=== PATIENT | male | born 2000 | race Caucasian/White ===

== ENCOUNTER 2020-03-10 15:37 | Emergency (ER) | payer BC ==
[~2020-03-10 15:37] MED LIST: Iopamidol-370 76% 500 ML 1 ML ONE
[2020-03-10] MEDS ORDERED: Ondansetron ODT 4 MG TAB ONE (16:23)
[2020-03-10 16:39] LABS: #Basophils 0.1 thou/uL (0.0-0.2); #Eosinphils 0.2 thou/uL (0.0-0.7); #Lymphocytes 3.2 thou/uL (1.20-3.40); #Monocytes 0.9 thou/uL (0.11-0.59); #Neutrophils 7.7 thou/uL (1.40-6.50); %Basophils 0.9 % (0.0-1.0); %Eosinophils 1.6 % (0.0-10.0); %Lymphocytes 26.6 % (21.0-51.0); %Monocytes 7.2 % (0.0-10.0); %Neutrophils 63.8 % (42.0-75.0); Hemoglobin 15.1 g/dL (14.0-18.0); Mean Corpuscular HGB CONC 34.5 g/dL (32.0-36.0); Mean Corpuscular Hemoglobin 30.1 pg (27.0-31.0); Mean Corpuscular Volume 87.2 fL (78.0-98.0); Mean Platelet Volume 7.5 fL (7.4-10.4); Platelet Count 382 thou/uL (130-400); RBC Distribution Width 11.6 % (11.5-14.5); Red Blood Cell (RBC) Count 5.02 mill/uL (4.70-6.10)
[2020-03-10 16:45] LABS: Bilirubin Negative (Negative); Blood, Urine Negative (Negative); Clarity Clear (Clear); Glucose, Urine (Dipstick) Normal (Negative); Ketone, Urine Negative (Negative); Leukocyte Negative Leu/uL (Negative); Nitrite Negative (Negative); Protein, Urine (Dipstick) 10 mg/dL (Neg-Trace); Urobilinogen Normal mg/dL (Less than 2); pH, Urine 6.5 (5.0-9.0)
[2020-03-10 16:59] LABS: ALT (SGPT) 36 U/L (8-55); AST (SGOT) 31 U/L (5-34); Albumin 4.6 g/dL (3.5-5.0); Alkaline Phosphatase 68 U/L (40-110); Anion Gap 13 mmol/L (10-20); BUN (Urea Nitrogen) 8 mg/dL (8.9-20.6); Bilirubin, Total 0.6 mg/dL (0.2-1.2); Calc. Creatinine Clearance 0 mL/min (70-130); Calcium 9.6 mg/dL (7.8-10.44); Carbon Dioxide 23 mmol/L (22-29); Chloride 108 mmol/L (98-107); Estimated GFR-MDRD 84; Glucose 96 mg/dL (70-105); Lipase 12 U/L (8-78); Potassium 4.2 mmol/L (3.5-5.1); Protein, Total 7.6 g/dL (6.0-8.3); Sodium 140 mmol/L (136-145)
[2020-03-10] MEDS ORDERED: Ondansetron PF 4 MG/2 ML Vial ONE (17:42)
--- NOTE | 2020-03-10 18:53 | CT ---
EXAM: ABDOMEN AND PELVIC CT SCAN WITH IV CONTRAST: 03/10/20 HISTORY: Right lower quadrant pain, abdominal pain, nausea and vomiting, epigastric pain, burning. FINDINGS: Lung bases appear clear. Probable mild fatty changes of the liver with borderline hepatomegaly. Somew hat small contracted gallbladder but no evidence for acute cholecystitis. Pancreas, spleen and adrena l glands are unremarkable. 2.4 cm hypodense cyst in the right kidney. No renal calculus or acute o bstruction. No CT evidence for acute appendicitis. No abscess, adenopathy, or abnormal fluid collecti on. No large or small bowel obstruction. Probable very small hiatal hernia. IMPRESSION: 1. Borderline liver size with some fatty change. 2. Possible very small hiatal hernia. 3. Evidence for a right renal cyst. 4. No evidence for other significant acute process. POS: RRE
== END 2020-03-10 19:08 | disposition home or self-care (01) ==
LOC: ERS 15:37
DX: R11.2 Nausea with vomiting, unspecified (principal); R10.13 Epigastric pain; F17.210 Nicotine dependence, cigarettes, uncomplicated; F41.9 Anxiety disorder, unspecified; F32.9 Major depressive disorder, single episode, unspecified; Z79.899 Other long term (current) drug therapy
CPT/HCPCS: 36415; 74177; 80053; 81003; 83690; 85025; 96361; 96374; J2405; Q0162